=== PATIENT | female | born 1935 | race Caucasian/White ===

== ENCOUNTER 2019-03-31 08:50 | Day surgery (SDC) | payer MEDICARE, OTHER, MEDICAID ==
[2019-03-21 13:31] LABS: ADD MAN DIFF? NO
[2019-03-21 13:39] LABS: BASOPHILS % 0.3 % (0.0-2.0); EOSINOPHILS # 0.1 10^3/ul (0.0-0.5); EOSINOPHILS % 0.8 % (0.0-7.0); HEMATOCRIT 45.2 % (37.0-47.0); HEMOGLOBIN 15.3 g/dl (12.0-16.0); LYMPHOCYTES # 1.2 10^3/ul (0.8-2.9); LYMPHOCYTES % 15.9 % (15.0-51.0); MEAN CORPUSCULAR HEMOGLOBIN 30.4 pg (29.0-33.0); MEAN CORPUSCULAR HGB CONC 33.8 g/dl (32.0-37.0); MEAN CORPUSCULAR VOLUME 89.9 fl (82.0-101.0); MEAN PLATELET VOLUME 11.9 fl (7.4-10.4); MONOCYTE # 0.5 10^3/ul (0.3-0.9); MONOCYTES % 6.8 % (0.0-11.0); NEUTROPHIL # 5.8 10^3/ul (1.6-7.5); NEUTROPHILS % 75.9 % (39.0-77.0); PLATELET COUNT 194 10^3/UL (140-415); RED BLOOD COUNT 5.03 10^6/ul (4.20-5.40)
[2019-03-21 13:39] LABS: WHITE BLOOD COUNT 7.6 10^3/ul (4.8-10.8)
[2019-03-21 13:51] LABS: ALANINE AMINOTRANSFERASE 25 IU/L (13-69); ALBUMIN 4.4 g/dl (3.3-4.9); ALBUMIN/GLOBULIN RATIO 1.25; ALKALINE PHOSPHATASE 103 IU/L (42-121); ANION GAP 10 (5-13); ASPARTATE AMINO TRANSFERASE 29 IU/L (15-46); BILIRUBIN,INDIRECT 0.6 mg/dl (0-1.1); BILIRUBIN,TOTAL 0.6 mg/dl (0.2-1.3); BLOOD UREA NITROGEN 12 mg/dl (7-20); CARBON DIOXIDE 32 mmol/L (21-31); CHLORIDE 99 mmol/L (97-110); CREATININE 0.78 mg/dl (0.44-1.00); GLUCOSE 139 mg/dl (70-220); POTASSIUM 3.5 mmol/L (3.5-5.1); SODIUM 141 mmol/L (135-144); TOTAL PROTEIN 7.9 g/dl (6.1-8.1)
[2019-03-21 13:55] LABS: CALCIUM 10.4 mg/dl (8.4-10.2)
[2019-03-21 14:18] LABS: INR 0.95; PROTIME 12.8 Sec (11.9-14.9)
[2019-03-21 14:19] LABS: PARTIAL THROMBOPLASTIN TIME 26.7 Sec (23.0-35.0)
[2019-03-31] MEDS: VANCOMYCIN HCL 2 GM in SOD CHLORIDE 0.9% 500 ML IVPB (06:00)
[~2019-03-31 08:50] MED LIST: CEFAZOLIN 2 GM/50 ML (PMX) 50 ML IVPB; SOD CHLORIDE 0.9% 1,000 ML IV
[2019-03-31] MEDS ORDERED: HYDROmorphONE 2 MG/ML SYG (12:30)
[2019-03-31] MEDS ORDERED: CEFAZOLIN 1 GM INJ (12:44)
[2019-03-31] MEDS ORDERED: PROPOFOL 20 ML (12:44)
[2019-03-31] MEDS ORDERED: ONDANSETRON 4 MG INJ (12:44)
[2019-03-31] MEDS ORDERED: METOCLOPRAMIDE 10 MG INJ (12:44)
[2019-03-31] MEDS ORDERED: FENTAnyl 50 MCG/ML VIAL (12:44)
[2019-03-31] MEDS ORDERED: DIPHENHYDRAMINE 50 MG INJ IV (13:00)
[2019-03-31] MEDS ORDERED: ONDANSETRON 4 MG INJ IV (13:00)
[2019-03-31] MEDS ORDERED: FENTAnyl 50 MCG/ML VIAL IV ×3 (13:00)
[2019-03-31] MEDS ORDERED: MEPERIDINE 25 MG INJ IV (13:00)
[2019-03-31] MEDS ORDERED: HYDROmorphONE 1 MG/5 ML IV SYRINGE IV ×3 (13:00)
[2019-03-31] MEDS ORDERED: EPHEDrine 25 MG/5 ML SYG (13:44)
[2019-03-31] MEDS ORDERED: HYDROCODONE/APAP (7.5/325) TAB PO (14:00)
== END 2019-03-31 16:08 | disposition home or self-care (01) ==
LOC: SDS 08:50
DX: C50.912 Malignant neoplasm of unspecified site of left female breast (principal); I10 Essential (primary) hypertension; E78.5 Hyperlipidemia, unspecified
CPT/HCPCS: 19301; 71045; 80053; 85025; 85610; 85730; 88300; 88307; 93005